=== PATIENT | male | born 1960 | race Two or more races ===

== ENCOUNTER 2021-07-27 12:57 | Outpatient (RCR) | payer BC, OTHER | END 2021-08-02 | LOC: M PT 12:57 | PROVIDERS: ATTEND Family Medicine | DX: M26.609 Unspecified temporomandibular joint disorder, unspecified side (principal) ==

== ENCOUNTER 2021-08-03 14:06 | Outpatient (RCR) | payer BC, OTHER | END 2021-09-01 | LOC: M PT 14:06 | PROVIDERS: ATTEND Family Medicine | DX: M26.609 Unspecified temporomandibular joint disorder, unspecified side (principal) ==